=== PATIENT | female | born 1950 | race Caucasian/White ===

== ENCOUNTER 2018-05-29 14:19 | Outpatient (CLI) | payer MEDICARE ==
--- NOTE | 2018-05-29 14:52 | RAD ---
LEFT ANKLE THREE VIEWS: History: Persistent heel pain of the left foot. FINDINGS: Moderate sized enthesophyte formation is present at the calcaneus. There is no fracture or dislocatio n. Scattered osseous degenerative change is present. IMPRESSION: 1. Calcaneal enthesophyte formation. 2. No acute fracture or dislocation. POS: [facility]
== END 2018-05-29 14:20 | disposition home or self-care (01) ==
LOC: MADRAD 14:19
PROVIDERS: ATTEND Emergency Medicine
DX: M25.572 Pain in left ankle and joints of left foot (principal); M77.32 Calcaneal spur, left foot

== ENCOUNTER 2021-09-24 11:26 | Emergency (ER) | payer MEDICARE ==
[2021-09-24 13:38] LABS: Bilirubin Small (Negative); Blood, Urine Negative (Negative); Glucose, Urine (Dipstick) Negative (Negative); Ketone, Urine Negative (Negative); Leukocyte Trace (Negative); Nitrite Negative (Negative); Protein, Urine (Dipstick) Trace mg/dL (Neg-Trace); Specific Gravity, Urine 1.025 (1.005-1.030); Urobilinogen 0.2 mg/dL (Less than 2)
[2021-09-24 13:50] LABS: Clarity Hazy (Clear)
[2021-09-24 13:51] LABS: Bacteria/HPF 1+ HPF (None Seen); RBC/HPF 0-3 HPF (0-3)
== END 2021-09-24 14:10 | disposition home or self-care (01) ==
LOC: MADERS 11:26
DX: S32.010A Wedge compression fracture of first lumbar vertebra, initial encounter for closed fracture (principal); S32.040A Wedge compression fracture of fourth lumbar vertebra, initial encounter for closed fracture; E03.9 Hypothyroidism, unspecified; I11.0 Hypertensive heart disease with heart failure; I50.9 Heart failure, unspecified; I48.91 Unspecified atrial fibrillation; E05.00 Thyrotoxicosis with diffuse goiter without thyrotoxic crisis or storm; W19.XXXA Unspecified fall, initial encounter
CPT/HCPCS: 70450; 72100; 72220; 81003; 81015; 87086

== ENCOUNTER 2021-10-03 12:08 | Emergency (ER) | payer MEDICARE ==
[2021-10-03] MEDS ORDERED: Ondansetron PF 4 MG/2 ML Vial ONE (12:44)
[2021-10-03] MEDS ORDERED: Sodium Chloride 0.9% 1,000 ML ONE ×2 (12:44→15:23)
[2021-10-03 12:54] LABS: Hemoglobin 18.1 g/dL (12.0-16.0); Mean Corpuscular HGB CONC 30.6 g/dL (32.0-36.0); Mean Corpuscular Hemoglobin 26.6 pg (27.0-31.0); Mean Corpuscular Volume 86.7 fL (78.0-98.0); Mean Platelet Volume 7.1 fL (7.4-10.4); Platelet Count 273 thou/uL (130-400); RBC Distribution Width 18.8 % (11.5-14.5); Red Blood Cell (RBC) Count 6.81 mill/uL (4.20-5.40); White Blood Cell (WBC) Count 40.6 thou/uL (4.8-10.8)
[2021-10-03 12:57] LABS: ALT (SGPT) 19 U/L (8-55); AST (SGOT) 16 U/L (5-34); Albumin 3.8 g/dL (3.4-4.8); Alkaline Phosphatase 160 U/L (40-110); Anion Gap 21 mmol/L (10-20); BUN (Urea Nitrogen) 34 mg/dL (9.8-20.1); Bilirubin, Total 1.7 mg/dL (0.2-1.2); Calc. Creatinine Clearance 0 mL/min (70-130); Calcium 9.5 mg/dL (7.8-10.44); Carbon Dioxide 28 mmol/L (23-31); Chloride 95 mmol/L (98-107); Digoxin 1.89 ng/mL (0.8-2.0); Globulin 3.9 g/dL (2.4-3.5); Glucose 109 mg/dL (83-110); Lipase 10 U/L (8-78); Potassium 3.2 mmol/L (3.5-5.1); Protein, Total 7.7 g/dL (5.8-8.1); Sodium 141 mmol/L (136-145)
[2021-10-03 13:08] LABS: Anisocytosis SLIGHT = 6-15 cells (100X) (0-5/hpf); Band 4 % (5-11); Lymphocytes 2 % (21-51); MDiff Complete? YES; Manual Diff?? YES; Monocytes 5 % (0-10); Neutrophil 92 % (42-75); Platelet Morphology Comment Appears Adequate; Poikilocytosis SLIGHT = 6-15 cells (100X) (0-5/hpf)
[2021-10-03] MEDS ORDERED: D5 1/2 NS w/20 mEq KCL 1,000 ML ONE (13:49)
[2021-10-03] MEDS ORDERED: 1/2 NS w/KCL 20 mEq 0 ML ONE (13:50)
[2021-10-03] MEDS ORDERED: NS 0.9% w/ 20 MEQ KCL 1,000 ML ONE (13:53)
[2021-10-03 18:41] LABS: Bilirubin Moderate (Negative); Blood, Urine Trace (Negative); Clarity Cloudy (Clear); Glucose, Urine (Dipstick) Negative (Negative); Ketone, Urine Trace mg/dL (Negative); Leukocyte Negative (Negative); Nitrite Negative (Negative); Protein, Urine (Dipstick) 30 mg/dL (Neg-Trace); Specific Gravity, Urine 1.025 (1.005-1.030); pH, Urine 5.5 (5.0-9.0)
[2021-10-03 18:49] LABS: Bacteria/HPF 1+ HPF (None Seen); RBC/HPF 0-3 HPF (0-3); Squamous Epithelial 0-3 HPF (0-3); WBC/HPF None Seen HPF (0-3)
[2021-10-03 18:52] LABS: Anion Gap 18 mmol/L (10-20); BUN (Urea Nitrogen) 33 mg/dL (9.8-20.1); Calc. Creatinine Clearance 0 mL/min (70-130); Calcium 8.4 mg/dL (7.8-10.44); Carbon Dioxide 26 mmol/L (23-31); Chloride 103 mmol/L (98-107); Glucose 96 mg/dL (83-110); Sodium 143 mmol/L (136-145)
[2021-10-03 19:00] LABS: Anisocytosis SLIGHT = 6-15 cells (100X) (0-5/hpf); MDiff Complete? YES; Mean Corpuscular HGB CONC 30.3 g/dL (32.0-36.0); Mean Corpuscular Hemoglobin 26.4 pg (27.0-31.0); Mean Corpuscular Volume 86.9 fL (78.0-98.0); Mean Platelet Volume 6.7 fL (7.4-10.4); Neutrophil 93 % (42-75); Platelet Count 234 thou/uL (130-400); Platelet Morphology Comment Appears Adequate; RBC Distribution Width 18.5 % (11.5-14.5); Reactive Lymphocytes 7 % (0-10); Red Blood Cell (RBC) Count 6.09 mill/uL (4.20-5.40); White Blood Cell (WBC) Count 37.1 thou/uL (4.8-10.8)
== END 2021-10-03 23:01 | disposition short-term general hospital (02) ==
LOC: MADERS 12:08
DX: D72.829 Elevated white blood cell count, unspecified (principal); N28.9 Disorder of kidney and ureter, unspecified; E86.9 Volume depletion, unspecified; I48.91 Unspecified atrial fibrillation; E03.9 Hypothyroidism, unspecified; I11.0 Hypertensive heart disease with heart failure; I50.9 Heart failure, unspecified; Z79.899 Other long term (current) drug therapy; Z79.01 Long term (current) use of anticoagulants
CPT/HCPCS: 36415; 71046; 74176; 80053; 80162; 81003; 81015; 83690; 85025; 96365; 96366; 96375; J2405; J3480; J7050

== ENCOUNTER 2022-02-07 14:23 | Outpatient (CLI) | payer MEDICARE | END 2022-02-07 14:24 | disposition home or self-care (01) | LOC: MADLAB 14:23 | PROVIDERS: ATTEND Family Medicine | DX: R00.0 Tachycardia, unspecified (principal) | CPT/HCPCS: 93005; 93010 ==

== ENCOUNTER 2022-02-27 10:39 | Outpatient (CLI) | payer MEDICARE ==
[2022-02-27 11:14] LABS: Mean Corpuscular HGB CONC 29.5 g/dL (32.0-36.0); Mean Corpuscular Hemoglobin 26.9 pg (27.0-31.0); Mean Corpuscular Volume 91.2 fL (78.0-98.0); Mean Platelet Volume 10.2 fL (7.4-10.4); Platelet Count 571 thou/uL (130-400); Red Blood Cell (RBC) Count 6.32 mill/uL (4.20-5.40); White Blood Cell (WBC) Count 29.2 thou/uL (4.8-10.8)
[2022-02-27 11:22] LABS: Anion Gap 14 mmol/L (10-20); BUN (Urea Nitrogen) 18 mg/dL (9.8-20.1); Calc. Creatinine Clearance 0 mL/min (70-130); Calcium 9.4 mg/dL (7.8-10.44); Carbon Dioxide 24 mmol/L (23-31); Chloride 104 mmol/L (98-107); Estimated GFR 42; Glucose 103 mg/dL (83-110); Potassium 3.9 mmol/L (3.5-5.1); Sodium 138 mmol/L (136-145)
[2022-02-27 17:02] LABS: Creatinine, Urine 22.53 mg/dL (47-110)
== END 2022-02-27 10:40 | disposition home or self-care (01) ==
LOC: MADLAB 10:39
PROVIDERS: ATTEND Internal Medicine Hematology & Oncology
DX: D45 Polycythemia vera (principal); N17.9 Acute kidney failure, unspecified
CPT/HCPCS: 36415; 80048; 82570; 84300; 84540; 85027